=== PATIENT | male | born 1995 | race Caucasian/White ===

== ENCOUNTER 2019-05-14 12:31 | Emergency (ER) | payer SELFPAY ==
[~2019-05-14] VITALS: Ht 172.7 cm; Wt 63.5 kg
[2019-05-14 12:50] VITALS: BP 150/81
[2019-05-14] MEDS ORDERED: predniSONE 10 MG TABLET PO ONE (13:00)
[2019-05-14] MEDS ORDERED: diphenhydrAMINE HCL 25 MG CAPSULE PO ONE (13:00)
[2019-05-14] MEDS ORDERED: FAMOTIDINE 20 MG TABLET. PO ONE (13:00)
--- NOTE | 2019-05-14 13:00 | PHYS DOC ---
Past Medical History Past Medical History: No Pertinent History Adult General Chief Complaint Chief Complaint: INSECT BITE HPI HPI Patient is a pleasant 24-year-old male who presents to the emergency department for evaluation. He states about 10 or 15 minutes prior to arrival, he was stung by a wasp on his right forearm. He has a small red keyur at the site, but no other symptoms. However, the patient and his mother state that at the age of 6, he was stung by for wasp's, and developed a severe anaphylactic reaction which r equired hospitalization. He had been prescribed EpiPen's in the past, but has never had to use them as he had never had a prior sting. He denies any other symptoms at this time, other than some discomfort at the sting site. Denies any shortness of breath, dizziness or lightheadedness, numbness or focal weakness. Review of Systems Review of Systems Constitutional: Denies fever or chills [] Eyes: Denies change in visual acuity, redness, or eye pain [] HENT: Denies nasal congestion or sore throat [] Respiratory: Denies cough or shortness of breath [] GI: Denies abdominal pain, nausea, vomiting, bloody stools or diarrhea [] : Denies dysuria or hematuria [] Musculoskeletal: Denies back pain or joint pain [] Integument: Denies rash or skin lesions [] Neurologic: Denies headache, focal weakness or sensory changes [] Current Medications Current Medications Current Medications Medications (Trade) Dose Ordered Sig/Sebastián Start Time Stop Time Status Last Admin Dose Admin Diphenhydramine HCl (Benadryl) 25 mg 1X ONCE 05/14/19 13:00 05/14/19 13:01 DC 05/14/19 13:12 25 MG Famotidine (Pepcid) 20 mg 1X ONCE 05/14/19 13:00 05/14/19 13:01 DC 05/14/19 13:12 20 MG Prednisone (Prednisone) 40 mg 1X ONCE 05/14/19 13:00 05/14/19 13:01 DC 05/14/19 13:12 40 MG Allergies Allergies Allergies Coded Allergies Type Severity Reaction Last Updated Verified Sulfa (Sulfonamide Antibiotics) Allergy Unknown 05/14/19 Yes aspirin Allergy Unknown 05/14/19 Yes erythromycin base Allergy Unknown 05/14/19 Yes Physical Exam Physical Exam PHYSICAL EXAM: CONSTITUTIONAL: Well developed, well nourished HEAD: normocephalic, atraumatic EENT: PERRL, EOMI. Conjunctivae normal color, sclerae non-icteric; moist mucous membranes. The airways patent without edema. NECK: Supple, non-tender; no meningismus. LUNGS: Lungs CTA, breathing even and unlabored. Normal air movement. HEART: Regular rate and rhythm, no murmur CHEST: No deformity; non-tender ABDOMEN: The abdomen is soft, and non-tender, no masses or bruits. EXTREM: There is a punctate small red keyur on the anterior aspect of the right forearm, proximally/medially, with no surrounding warmth or erythema, no u rticaria lesions. No other lesions are noted, the extremities demonstrate Normal ROM; no deformity, no calf tenderness. Normal pulses palpable in all extremities. There is no pedal edema. SKIN: No rash; no diaphoresis NEURO: Alert; normal speech and cognition; CN's grossly intact; strength grossly intact without focal deficit. BACK: No CVA TTP. Current Patient Data Vital Signs Vital Signs Date Time Temp Pulse Resp B/P (MAP) Pulse Ox O2 Delivery O2 Flow Rate FiO2 05/14/19 12:50 98.9 81 16 150/81 (104) 100 Room Air 98.9 EKG EKG [] Radiology/Procedures Radiology/Procedures [] Course & Med Decision Making Course & Med Decision Making Given the patient's history, although his initial sting site looks unimpressive, given the recent envenomation, the patient will be observed in the emergency department and treated with oral medication to prevent severe allergic reaction. He'll be observed in the emergency department for an hour and a symptomatically discharge with close follow-up instructions. 1:50 PM: Patient remains asymptomatic. Dragon Disclaimer Dragon Disclaimer This electronic medical record was generated, in whole or in part, using a voice recognition dictation system. Departure Departure Impression: Primary Impression: Insect sting Disposition: 01 HOME, SELF-CARE Condition: STABLE Patient Instructions: Insect Bite, Insect Sting Allergy ADAIR GARCIA MD May 14, 2019 12:59
== END 2019-05-14 13:55 | disposition home or self-care (01) ==
LOC: ER 12:31
DX: T63.461A Toxic effect of venom of wasps, accidental (unintentional), initial encounter (principal); Z88.6 Allergy status to analgesic agent; Z88.2 Allergy status to sulfonamides; Z88.1 Allergy status to other antibiotic agents; Y92.89 Other specified places as the place of occurrence of the external cause
CPT/HCPCS: 99284; J7512; Q0163